=== PATIENT | male | born 1970 | race Caucasian/White ===

== ENCOUNTER 2021-08-03 11:09 | Emergency (ER) | payer OTHER, BC, SELFPAY ==
[2021-08-03 11:34] VITALS: BP 160/86; PULSE 99; RESP 17; TEMP 36.2; O2SAT 97
--- NOTE | 2021-08-03 12:35 | ED.WOUNDLAC ---
HPI - Wound/Laceration General Chief Complaint: Wound/Laceration Stated Complaint: Insect Bite Rt Hand Time Seen by Provider: 08/03/21 12:20 Source: patient, RN notes reviewed and old records reviewed Mode of arrival: ambulatory Limitations: no limitations History of Present Illness HPI narrative: 51 year old male presents to express care with complaints of insect bite to his right hand yesterday noted lesion 0.5cm X 0.5cm on dorsal aspect of thumb with scabbing and today he has swelling to the dorsal aspect of his right hand with itching. and some up his distal forearm. Patient reports that he has taken some Aleve for his discomfort and swelling, he denies any shortness of breath or any difficulty swallowing. Patient reports that his tetanus is not up to date. Onset (ago): day(s) (1) Location: other (right hand) Extremity Location: Right: hand Patient tetanus UTD: No Related Data Allergies Allergy/AdvReac Type Severity Reaction Status Date / Time No Known Allergies Allergy Verified 08/03/21 12:20 Review of Systems Review of Systems: CONSTITUTIONAL: Denies fever, chills, or sweats. EYES: Denies visual changes, redness, or discharge. ENT: Denies rhinorrhea, congestion, sore throat, or otalgia. CARDIOVASCULAR: Denies chest pain, palpitations, or edema. RESPIRATORY: Denies cough or dyspnea. GASTROINTESTINAL: Denies abdominal pain, nausea, vomiting, or diarrhea. GENITOURINARY: Denies dysuria or hematuria. SKIN: Positive for inject bite to right thumb yesterday evening at work and today right hand is swollen and itchy with no acute pain verbalized,Patient is concerned bcaus swelling has increased since this morning with some tightness feeling to the top of his right hand and swelling up to the distal forearm. MUSCULOSKELETAL: Denies back pain, joint pain, or myalgia. NEUROLOGIC: Denies headache, numbness, or weakness. PSYCHIATRIC: Denies anxiety or depression. [facility] Past Medical History Medical History Elevated cholesterol Gout Hypertension Family History Family History Father Malignant neoplasm of prostate Family history of coronary artery disease Acute myocardial infarction Mother Family history of lung cancer Social History Social History Smoking packs per day: 1 Smoking cigarettes per day: 20.0 Smoking status: Current every day smoker Tobacco type: cigarettes Alcohol intake: current Substance use type: does not use Living arrangements: with family Gender identity (if verbalized by the patient): Male Comments At time of signature, agree with nursing past medical, surgical, social and family history. There is no relevant family history pertinent to the presenting complaint Exam Narrative: GENERAL: Well-appearing, well-nourished, and in no acute distress. HEAD: Normocephalic, atraumatic. EYES: PERRLA and EOMI. ENT: Nares clear, no rhinorrhea or epistaxis. Mucous membranes moist. TM's normal with good light reflex, throat pink with no swelling or lesions, no tonsil enlargement. NECK: Supple. no lymphadenopathy CHEST: Clear to auscultation. No respiratory distress.SAO2 97% on room air HEART: Regular rate and rhythm. No murmur heard. Normal peripheral pulses. ABDOMEN: Soft, nontender, nondistended, normal active bowel sounds. EXTREMITIES: Normal range of motion.Small lesion to dorsal aspect of right thumb from stated insect bite with top of right hand swollen and reported feelings of tightness and also some swelling to distal forearm. ROM intact to right arm and hand, pulses strong with complaints of itching to hand, no tingling or numbness to hand or fingers reported, no induration of tissue. SKIN: Warm, dry, no rash. NEURO: No focal deficits. Alert and oriented x3. Course Course Level of Care: Express Care Visit Vital Signs Vital signs:
[2021-08-03 12:39] VITALS: BP 152/86
[2021-08-03] MEDS: TETANUS,DIPHTHERIA,AC PERTUSSIS ADULT (0.5 ML) BOOSTRIX IM (12:48)
== END 2021-08-03 13:00 | disposition home or self-care (01) ==
PROVIDERS: Emergency Provider Registered Nurse
DX: S60.361A Insect bite (nonvenomous) of right thumb, initial encounter (principal); W57.XXXA Bitten or stung by nonvenomous insect and other nonvenomous arthropods, initial encounter; R22.31 Localized swelling, mass and lump, right upper limb; F17.210 Nicotine dependence, cigarettes, uncomplicated; E78.00 Pure hypercholesterolemia, unspecified; I10 Essential (primary) hypertension; M10.9 Gout, unspecified; Z23 Encounter for immunization
CPT/HCPCS: 90471; 90715; 99213; G0463